=== PATIENT | male | born 1970 | race Caucasian/White ===

== ENCOUNTER 2018-12-27 16:06 | Emergency (ER) | payer BC ==
[2018-12-27 16:09] VITALS: BMI 25.4
[2018-12-27 16:31] VITALS: TEMP 98.3
--- NOTE | 2018-12-27 16:34 | PDOC ---
History of Present Illness - General Chief Complaint: Syncope/Near Syncope Stated Complaint: SYNCOPE Time Seen by Provider: 12/27/18 16:11 History Source: Patient Exam Limitations: No Limitations - History of Present Illness Initial Comments: Talha Chávez is a 48 yo M who denies having any pmh who presents to the [facility] after he experienced a syncopal episode earlier this morning when he was bending over and putting on his socks. He states he went to his PCP' s office - Dr. Malorie Hawthorne - who recommended he come to the ER to be evaluated for his syncopal episode. The patient states that he was well until yesterday evening when he went to sleep. He awoke from his sleep at 2 am and noted that he was lightheaded and had to urinate much more frequently than usual. He endorses significant frequency. He states that when he goes to the bathroom a significant amount comes out. This morning when he was bending over to put on his socks he fell over and passed out for an unspecified amount of time. He believes it was only a few minutes and then when he woke up he was back to baseline immediately. The patient does not believe he hit his head and doesn't remember exactly how it happened. Patient denies having experienced any chest pain or shortness of breath at any point. PCP: Dr. Hawthorne PSH: None reported Social Hx: Denies smoking, drinking, or other substance usage Allergies: NKA, NKDA Past History - Past Medical History Allergies/Adverse Reactions: Allergies Allergy/AdvReac Type Severity Reaction Status Date / Time No Known Allergies Allergy Verified 12/27/18 16:07 Home Medications: Ambulatory Orders NK [No Known Home Medication] 12/27/18 COPD: No - Psycho Social/Smoking Cessation Hx Smoking History: Never smoked Hx Alcohol Use: Yes (ONCE A WEEK) Drug/Substance Use Hx: No Review of Systems - Review of Systems Able to Perform ROS?: Yes Comments:: CONSTITUTIONAL: Absent: fever, no chills, no fatigue EYES: Absent: visual changes ENT: Absent: ear pain, no sore throat CARDIOVASCULAR: Present: syncope, lighthededness Absent: chest pain, palpitations, irregular heart rate, peripheral edema RESPIRATORY: Absent: cough, no SOB GI: Absent: abdominal pain, no nausea, no vomiting, no constipation, no diarrhea GENITOURINARY: Absent: dysuria, no frequency, no hematuria MUSKULOSKELETAL: Absent: back pain, no arthralgia, no myalgia SKIN: Absent: rash NEURO: Absent: headache *Physical Exam - Vital Signs Last Vital Signs Temp Pulse Resp BP Pulse Ox 98.3 F 74 16 126/89 98 12/27/18 16:07 12/27/18 16:07 12/27/18 16:07 12/27/18 16:07 12/27/18 16:07 - Physical Exam Comments: GENERAL: Well-appearing, well-nourished. No apparent distress. HEENT: Normocephalic, atraumatic. PERRL, EOM intact. CARDIOVASCULAR: Normal S1, S2. Regular rate and rhythm. PULMONARY: No evidence of respiratory distress. Lungs clear to auscultation bilaterally. No wheezing, rales or rhonchi. ABDOMEN: Soft, non-distended, non-tender. EXTREMITIES: Normal ROM in all four extremities. No gross deformities. SKIN: Warm, dry. No rash NEUROLOGICAL: No focal neurological deficits. ED Treatment Course - LABORATORY CBC & Chemistry Diagram: 12/27/18 16:30 12/27/18 16:30 Medical Decision Making - Medical Decision Making Talha Chávez is a 48 yo M who denies having any pmh who presents to the [facility] after he experienced a syncopal episode earlier this morning when he was bending over and putting on his socks. He states he went to his PCP' s office - Dr. Malorie Hawthorne - who recommended he come to the ER to be evaluated for his syncopal episode. The patient states that he was well until yesterday evening when he went to sleep. He awoke from his sleep at 2 am and noted that he was lightheaded and had to urinate much more frequently than usual. He endorses significant frequency. He states that when he goes to the bathroom a significant amount comes out. This morning when he was bending over to put on his socks he fell over and passed out for an unspecified amount of time. He believes it was only a few minutes and then when he woke up he was back to baseline immediately. The patient does not believe he hit his head and doesn't remember exactly how it happened. Patient denies having experienced any chest pain or shortness of breath at any point. Vital Signs Temp Pulse Resp BP Pulse Ox 98.3 F 74 16 126/89 98 12/27/18 16:07 12/27/18 16:07 12/27/18 16:07 12/27/18 16:07 12/27/18 16:07 DDx IBNLT: Crdiogenic vs neurogenic syncope - ACS/AZ, arrhythmia, CVA/TIA, electrolyte/metabolic disturbance, dehydration, UTI, vasovagal event Plan: Labs, Urine, EKG, CXR, Head CT, IV hydration, re-assess. EKG: NS rate of 67, narrow complexes, normal axis, no hypertrophy, no ST elevations or depressions, no Q waves, no abnormal TWI's, no Q waves, NJ 170, QTc 420, no delta waves. Labs: unremarkable Urine: Clean CXR: Chest: Syncopal episode Single view of the chest reveals no change since . There are clear lungs, normal mediastinum and sharp angles. The bones and soft tissues are intact. Impression: No acute chest pathology. Head CT: Cranial CT without contrast Clinical information: syncope The exam consists of contiguous direct transaxial images. Intravenous contrast was not measured. No intracranial hemorrhage is seen. There is no extra-axial fluid collection. No discrete infarct is identified within the limitations of CT. There is no obvious mass lesion on noncontrast imaging. No definite abnormal attenuation is noted. The ventricles and cisterns appear unremarkable. No calvarial defect is seen. Impression: No CT evidence of acute intracranial pathology. There appears to be focal deformity of the partially imaged upper aspect of the right nasal bone which may be on the basis of a prior fracture. Correlate clinically. Re-assessment: Patient feels well and has been asymptomatic since prior to ED admission. PCP Consult: I spoke with Dr. Hawthorne who agrees that if the patient is asymptomatic and our entire workup in the ER is negative the patient can go home and follow up in her office to have this worked up as an outpatient. Disposition: Home with PCP follow up. Strict return precautions. Discharge - Discharge Information Problems reviewed: Yes Clinical Impression/Diagnosis: Syncope Qualifiers: Syncope type: unspecified Qualified Code(s): R55 - Syncope and collapse Condition: Stable Disposition: HOME - Admission No - Follow up/Referral Referrals: Malorie Hawthorne [Primary Care Provider] - - Patient Discharge Instructions Patient Printed Discharge Instructions: DI for Syncope in Adults (Fainting) Additional Instructions: You came into the ER after you fainted this morning. We looked at your blood and urine and found no abnormalities. We also did an EKG which was normal. We did a head CT and a chest x-ray which were all normal. We found no abnormalities in your workup in the ER. You were also asymptomatic throughout your entire ER visit. It is very important for you to goto your primary care doctor in the next 3 to 5 days and schedule a follow up to have this issue worked up as an outpatient. Please come back to the ER immediately if you pass out again, have any chest pain, shortness of breath, get a fever, or have any other new or worsening concerns. Thank you for coming to the [facility]. We hope you feel better soon! Print Language: LIBERIAN - Post Discharge Activity Work/Back to School Note: Back to Work
[2018-12-27] MEDS ORDERED: SODIUM CHLORIDE 0.9% 500 ML INFUS.BAG IV ONE (16:43)
[2018-12-27 16:49] LABS: BASO % 0.4 % (0-2.0); EOS % 2.1 % (0-4.5); HEMATOCRIT 45.6 % (35.4-49); HEMOGLOBIN 15.4 GM/dl (11.7-16.9); LYMPH % 32.9 % (8-40); MCHC 33.8 g/dl (32.0-35.9); MEAN CELL VOLUME 91.8 fl (80-96); MEAN PLT VOLUME 8.7 fl (7.5-11.1); MONO % 8.2 % (3.8-10.2); NEUT % 56.4 % (42.8-82.8); PLATELET COUNT 183 K/MM3 (134-434); RBC 4.97 M/mm3 (4.00-5.60); RDW 12.6 % (11.9-15.9)
[2018-12-27 17:03] LABS: ALBUMIN 4.3 g/dl (3.4-5.0); BILIRUBIN,TOTAL 0.9 mg/dl (0.2-1); CALCIUM 8.9 mg/dl (8.5-10); CREATININE 1.2 mg/dl (0.55-1.3)
[2018-12-27 18:07] VITALS: BP 141/96; PULSE 65
--- NOTE | 2018-12-28 15:08 | EKG ---
Test Reason : Blood Pressure : / mmHG Vent. Rate : 067 BPM Atrial Rate : 067 BPM P-R Int : 170 ms QRS Dur : 094 ms QT Int : 398 ms P-R-T Axes : 045 020 038 degrees QTc Int : 420 ms NORMAL SINUS RHYTHM NORMAL ECG NO PREVIOUS ECGS AVAILABLE Confirmed by ALMA DELIA MCDONALD MD ([id number]) on 12/28/2018 3:08:02 PM Referred By: MD CAMACHO Confirmed By:ALMA DELIA MCDONALD MD
== END 2018-12-27 18:21 | disposition home or self-care (01) ==
LOC: FER 16:06
PROC: 3E0337Z Introduction of Electrolytic and Water Balance Substance into Peripheral Vein, Percutaneous Approach (ICD-10-PCS; principal; 2018-12-27)
DX: R55 Syncope and collapse (principal)
CPT/HCPCS: 36415; 70450-TC; 71045-TC-FY; 80053; 81003; 82550; 82553; 84484; 85025; 87086; 93005; 99284-25